=== PATIENT | male | born 1975 | race Caucasian/White ===

== ENCOUNTER 2016-12-05 06:31 | Emergency (ER) | payer OTHER ==
[~2016-12-05] VITALS: Ht 170.2 cm; Wt 79.5 kg
[~2016-12-05 06:31] MED LIST: (None)3.5 GM OP; ACETTAB3 OR; ADDERALL20 MG OR; ADOXA PAK PO; ASPIRIN EC81 MG PO; ATIVAN0.5 MG PO; AUGMENTIN875TAB PO; BACTRIM DS1 TAB PO; CLINDAMYCIN300 M1 PO; CLONIDINE HCL0.2 MG PO; COLACE100 MG PO; DOXYCYCL HYC100 MG PO; EQ MAGNESIUM CI1 SOL PO; FLEXERIL OR; FLEXERIL PO; FLEXERIL5 M1 PO; GENTAMICIN SULF5 ML OP; GENTAMICIN0.3 % OD; GENTASOL0.3 % OS; HYDROCO/APAP1 T13 PO; HYDROXYZ HCL25 MG PO; KEFLEX500 MG OR; KRISTALOSE10 GM PO; LEVEMIR1000 UNITS SC; LIDOCAINE VISC20 ML EX; LOPRESSOR 550 MG/TAB PO; LORTAB 10 PO; LORTAB 10-325 M1 TAB PO; LORTAB 1010 MG PO; LORTAB 5/3255 MG PO; LORTAB 7.5 OR; LORTAB5 PO; METFORMIN500 M2 PO; MIRALAX3350 N1 PO; MIRALAX3350 NF PO; MOTRIN200 MG PO; MUPIROCIN2 % EX; NAPROSYN500 MG PO; NO HOME MEDS; NOVOLIN N1000 UNITS SC; NOVOLOG100 IU/1 M SC; OXYCODONE HCL15 MG PO; OXYCODONE30 MG PO; PENICILLN VK500 MG PO; PERCOCET 5/325M1 TAB PO; PERCOCET1 TA4 PO; RITALIN20 MG OR; ROBAXIN-750750 MG PO; SENNA/DSS1 TAB PO; TRADJENTA5 MG PO; TYLENOL # 31 TA1 PO; ULTRAM50 M1 PO; ULTRAM50 MG PO; VISTARIL50 MG OR; XANAX0.5 MG PO; ZESTRIL/PRIN5 MG/TA1 PO; ZESTRIL10 M1 PO; ZOCOR20 M1 PO; ZOFRAN4 MG/TAB PO; [UNRECOGNIZED DRUG - SUPPLY] TOP
[2016-12-05] MEDS ORDERED: RITALIN10 MG PO (06:58)
[2016-12-05 08:10] VITALS: BP 147/105
== END 2016-12-05 08:10 | disposition left against medical advice (07) | DRG 607 ==
LOC: ED 06:31
DX: R21 Rash and other nonspecific skin eruption (principal); E16.2 Hypoglycemia, unspecified; Z91.19 Patient's noncompliance with other medical treatment and regimen

== ENCOUNTER 2017-01-10 13:49 | Observation (INO) | payer OTHER ==
[~2017-01-10] VITALS: Ht 170.2 cm; Wt 80.0 kg
[~2017-01-10 13:49] MED LIST changes: +LEVEMIR FL100 UNIT/M SC; +RITALIN10 MG PO
[2017-01-10 14:33] LABS: HEMATOCRIT 44.3 % (39.0-50.0); HEMOGLOBIN 15.5 g/dl (14.0-18.0); IMMATURE GRANULOCYTES 0.4 % (0.0-1.0); MEAN CELL VOLUME 86.2 fL CALC (80.0-100.0); MEAN CORPUSCULAR HGB 30.2 pG CALC (26.0-32.0); NEUT# 8.95 thou/uL (1.82-7.42); RED BLOOD COUNT 5.14 mill/uL (4.70-6.10); RED CELL DISTRI WIDTH 12.2 % (11.5-15.5)
[2017-01-10] MEDS ORDERED: SUBOXONE1 MI1 SL (14:42)
[2017-01-10] MEDS ORDERED: ATIVAN1 MG PO (14:43)
[2017-01-10 14:51] LABS: ALBUMIN 4.5 g/dL (3.2-5.0); ALKALINE PHOSPHATASE 81 u/l (38-126); AMYLASE 36 u/l (30-110); ANION GAP 16 (6-22 (CALC)); BILIRUBIN, TOTAL 0.6 mg/dL (0.0-1.4); BUN 14 mg/dL (9-20); BUN/CREATININE RATIO 25 (12-20 (CALC)); CALCIUM 9.7 mg/dL (8.4-10.2); CARBON DIOXIDE 27 mmol/l (22-30); CHLORIDE 103 mmol/l (95-108); CREATININE 0.6 mg/dL (0.7-1.3); GFR > 60 ML/MIN (>=60 (CALC)); GFR FOR AFR.AMER. > 60 ML/MIN (>=60 (CALC)); GLUCOSE 174 mg/dL (75-110); LIPASE 17 u/l (23-300); POTASSIUM 4.3 mmol/l (3.5-5.1); SGOT/AST 36 u/l (17-59); SGPT/ALT 33 u/l (21-72); SODIUM 141 mmol/l (137-146); TOTAL PROTEIN 8.9 g/dL (6.3-8.2)
[2017-01-10 15:04] LABS: MYOGLOBIN 25 ng/mL (0 - 121)
[2017-01-10] MEDS ORDERED: XANAX2 MG PO (15:51)
[2017-01-10 16:00] VITALS: BP 125/85
[2017-01-10 19:00] VITALS: BP 121/83
[2017-01-10 23:19] VITALS: BP 124/81
[2017-01-11 03:48] VITALS: BP 121/88
[2017-01-12] MEDS ORDERED: ONDANSETRON HCL4 MG PO (20:35)
[2017-01-12] MEDS ORDERED: OXYCODONE HCL30 MG PO (20:36)
[2017-01-12] MEDS ORDERED: ALPRAZOLAM1 MG PO (20:38)
[2017-01-12] MEDS ORDERED: CLONIDINE HCL0.2 MG PO (20:38)
[2017-01-12] MEDS ORDERED: LORAZEPAM0.5 MG PO (20:39)
[2017-01-12] MEDS ORDERED: KEFLEX500 MG PO (23:10)
== END 2017-01-11 08:00 | disposition left against medical advice (07) | DRG 313 ==
LOC: ED 13:49 → ED-I 15:09 → ED 15:30 → MS2 15:31
PROVIDERS: Emergency Medicine; ADMIT Internal Medicine; ATTEND Internal Medicine
DX: R07.9 Chest pain, unspecified (principal); E11.40 Type 2 diabetes mellitus with diabetic neuropathy, unspecified; F11.20 Opioid dependence, uncomplicated; I10 Essential (primary) hypertension; G89.29 Other chronic pain; M54.9 Dorsalgia, unspecified; Z79.4 Long term (current) use of insulin
CPT/HCPCS: G0378

== ENCOUNTER 2017-01-12 20:16 | Emergency (ER) | payer OTHER ==
[~2017-01-12] VITALS: Ht 170.2 cm; Wt 81.0 kg
[~2017-01-12 20:16] MED LIST changes: +ATIVAN1 MG PO; +SUBOXONE1 MI1 SL; +XANAX2 MG PO
[2017-01-12] MEDS ORDERED: ONDANSETRON HCL4 MG PO (20:35)
[2017-01-12] MEDS ORDERED: OXYCODONE HCL30 MG PO (20:36)
[2017-01-12] MEDS ORDERED: CLONIDINE HCL0.2 MG PO (20:38)
[2017-01-12] MEDS ORDERED: ALPRAZOLAM1 MG PO (20:38)
[2017-01-12] MEDS ORDERED: LORAZEPAM0.5 MG PO (20:39)
[2017-01-12 23:00] VITALS: BP 158/72
[2017-01-12] MEDS ORDERED: KEFLEX500 MG PO (23:10)
== END 2017-01-12 23:00 | disposition home or self-care (01) | DRG 607 ==
LOC: ED 20:16
DX: L73.9 Follicular disorder, unspecified (principal); E11.40 Type 2 diabetes mellitus with diabetic neuropathy, unspecified; F11.20 Opioid dependence, uncomplicated; I10 Essential (primary) hypertension; G89.29 Other chronic pain; M54.9 Dorsalgia, unspecified; Z79.4 Long term (current) use of insulin

== ENCOUNTER 2017-02-27 12:48 | Emergency (ER) | payer OTHER ==
[~2017-02-27] VITALS: Ht 170.2 cm; Wt 85.0 kg
[~2017-02-27 12:48] MED LIST changes: +ALPRAZOLAM1 MG PO; +KEFLEX500 MG PO; +LEVEMIR100 UNIT/M SC; +LORAZEPAM0.5 MG PO; -NOVOLOG100 IU/1 M SC; +ONDANSETRON HCL4 MG PO; +OXYCODONE HCL30 MG PO
[2017-02-27] MEDS ORDERED: NOVOLOG100 UNIT/M SC (13:05)
[2017-02-27] MEDS ORDERED: ATIVAN1 MG PO (15:23)
[2017-02-27 15:33] VITALS: BP 135/90
== END 2017-02-27 15:45 | disposition home or self-care (01) | DRG 897 ==
LOC: ED 12:48
DX: F11.23 Opioid dependence with withdrawal (principal); E11.40 Type 2 diabetes mellitus with diabetic neuropathy, unspecified; I10 Essential (primary) hypertension; G89.29 Other chronic pain; M54.9 Dorsalgia, unspecified; Z79.4 Long term (current) use of insulin
CPT/HCPCS: J2060

== ENCOUNTER 2017-07-04 06:08 | Emergency (ER) | payer OTHER ==
[~2017-07-04] VITALS: Ht 170.2 cm; Wt 81.8 kg
[~2017-07-04 06:08] MED LIST changes: +NOVOLOG100 UNIT/M SC
[2017-07-04] MEDS ORDERED: SUBOXONE1 MI1 SL (06:34)
[2017-07-04 07:02] LABS: HEMATOCRIT 39.7 % (39.0-50.0); HEMOGLOBIN 13.7 g/dl (14.0-18.0); IMMATURE GRANULOCYTES 0.3 % (0.0-1.0); MEAN CELL VOLUME 89.2 fL CALC (80.0-100.0); MEAN CORPUSCULAR HGB 30.8 pG CALC (26.0-32.0); MEAN CORPUSCULAR HGB CONC 34.5 g/L CALC (32.0-36.0); NEUT# 7.7 thou/uL (1.82-7.42); RED BLOOD COUNT 4.45 mill/uL (4.70-6.10); RED CELL DISTRI WIDTH 12.2 % (11.5-15.5)
[2017-07-04 07:13] LABS: URINE BILIRUBIN - DIPSTICK NEGATIVE (NEGATIVE); URINE BLOOD DIPSTICK NEGATIVE (NEGATIVE); URINE CLARITY CLEAR; URINE COLOR YELLOW; URINE GLUCOSE - DIPSTICK NEGATIVE (NEGATIVE); URINE KETONE NEGATIVE (NEGATIVE); URINE LEUK ESTERASE NEGATIVE (NEGATIVE); URINE NITRITE - DIPSTICK NEGATIVE (Negative); URINE PROTEIN - DIPSTICK NEGATIVE (NEG-TRACE); URINE UROBILINOGEN - DIPSTICK 0.2 E.U./dL (0.2)
[2017-07-04 07:18] LABS: COCAINE NEGATIVE (NEGATIVE); METHADONE NEGATIVE (NEGATIVE); TETRAHYDROCANNABIONOL POSITIVE (NEGATIVE)
[2017-07-04 07:19] LABS: BARBITURATES NEGATIVE (NEGATIVE); OXCYCODONE NEGATIVE (NEGATIVE); TRICYLIC ANTIDEPRESSANTS NEGATIVE (NEGATIVE)
[2017-07-04 07:24] LABS: ALBUMIN 4.2 g/dL (3.2-5.0); ALKALINE PHOSPHATASE 55 u/l (38-126); ANION GAP 14 (6-22 (CALC)); BILIRUBIN, TOTAL 0.6 mg/dL (0.0-1.4); BUN 16 mg/dL (9-20); BUN/CREATININE RATIO 23 (12-20 (CALC)); CALCIUM 9.5 mg/dL (8.4-10.2); CARBON DIOXIDE 30 mmol/l (22-30); CHLORIDE 104 mmol/l (95-108); CREATININE 0.7 mg/dL (0.7-1.3); GFR > 60 ML/MIN (>=60 (CALC)); GFR FOR AFR.AMER. > 60 ML/MIN (>=60 (CALC)); GLUCOSE 188 mg/dL (75-110); POTASSIUM 4.8 mmol/l (3.5-5.1); SGOT/AST 25 u/l (17-59); SGPT/ALT 40 u/l (21-72); SODIUM 143 mmol/l (137-146); TOTAL PROTEIN 7.1 g/dL (6.3-8.2)
[2017-07-04 07:36] LABS: MYOGLOBIN 27 ng/mL (0 - 121)
[2017-07-04 11:41] VITALS: BP 119/70
== END 2017-07-04 11:45 | disposition home or self-care (01) | DRG 313 ==
LOC: ED 06:08
PROVIDERS: Emergency Medicine
DX: R07.89 Other chest pain (principal)

== ENCOUNTER 2017-08-07 12:49 | Emergency (ER) | payer OTHER ==
[~2017-08-07] VITALS: Ht 170.2 cm; Wt 63.6 kg
[2017-08-07] MEDS ORDERED: CLONIDINE HCL0.1 MG PO (13:19)
[2017-08-07] MEDS ORDERED: ATIVAN2 MG PO (13:21)
[2017-08-07 13:49] LABS: HEMATOCRIT 41.3 % (39.0-50.0); HEMOGLOBIN 14.5 g/dl (14.0-18.0); IMMATURE GRANULOCYTES 0.3 % (0.0-1.0); MEAN CELL VOLUME 87.3 fL CALC (80.0-100.0); MEAN CORPUSCULAR HGB 30.7 pG CALC (26.0-32.0); MEAN CORPUSCULAR HGB CONC 35.1 g/L CALC (32.0-36.0); NEUT# 6.8 thou/uL (1.82-7.42); RED BLOOD COUNT 4.73 mill/uL (4.70-6.10); RED CELL DISTRI WIDTH 12.3 % (11.5-15.5)
[2017-08-07 14:12] LABS: ALBUMIN 4.7 g/dL (3.2-5.0); ALKALINE PHOSPHATASE 65 u/l (38-126); ANION GAP 17 (6-22 (CALC)); BILIRUBIN, TOTAL 0.5 mg/dL (0.0-1.4); BUN 13 mg/dL (9-20); BUN/CREATININE RATIO 22 (12-20 (CALC)); CALCIUM 9.6 mg/dL (8.4-10.2); CARBON DIOXIDE 23 mmol/l (22-30); CHLORIDE 107 mmol/l (95-108); CREATININE 0.6 mg/dL (0.7-1.3); GFR > 60 ML/MIN (>=60 (CALC)); GFR FOR AFR.AMER. > 60 ML/MIN (>=60 (CALC)); GLUCOSE 150 mg/dL (75-110); POTASSIUM 4.5 mmol/l (3.5-5.1); SGOT/AST 35 u/l (17-59); SGPT/ALT 54 u/l (21-72); SODIUM 142 mmol/l (137-146); TOTAL PROTEIN 7.9 g/dL (6.3-8.2)
[2017-08-07 14:33] LABS: MYOGLOBIN 25 ng/mL (0 - 121)
[2017-08-07] MEDS ORDERED: ATIVAN1 MG PO (14:37)
[2017-08-07 15:53] VITALS: BP 109/69
== END 2017-08-07 15:56 | disposition home or self-care (01) | DRG 897 ==
LOC: ED 12:49
PROVIDERS: Emergency Medicine
DX: F13.239 Sedative, hypnotic or anxiolytic dependence with withdrawal, unspecified (principal); F11.20 Opioid dependence, uncomplicated; R07.89 Other chest pain; F41.9 Anxiety disorder, unspecified

== ENCOUNTER 2017-08-11 16:25 | Emergency (ER) | payer OTHER ==
[~2017-08-11] VITALS: Ht 170.2 cm; Wt 79.0 kg
[~2017-08-11 16:25] MED LIST changes: +ATIVAN2 MG PO; +CLONIDINE HCL0.1 MG PO
[2017-08-11 16:38] VITALS: BP 127/97
[2017-08-11 16:55] LABS: HEMATOCRIT 41.9 % (39.0-50.0); HEMOGLOBIN 14.7 g/dl (14.0-18.0); IMMATURE GRANULOCYTES 0.2 % (0.0-1.0); MEAN CELL VOLUME 86.9 fL CALC (80.0-100.0); MEAN CORPUSCULAR HGB 30.5 pG CALC (26.0-32.0); MEAN CORPUSCULAR HGB CONC 35.1 g/L CALC (32.0-36.0); NEUT# 5.17 thou/uL (1.82-7.42); RED BLOOD COUNT 4.82 mill/uL (4.70-6.10); RED CELL DISTRI WIDTH 12.2 % (11.5-15.5)
[2017-08-11 17:41] LABS: ALBUMIN 4.6 g/dL (3.2-5.0); ALKALINE PHOSPHATASE 66 u/l (38-126); ANION GAP 17 (6-22 (CALC)); BILIRUBIN, TOTAL 0.6 mg/dL (0.0-1.4); BUN 12 mg/dL (9-20); BUN/CREATININE RATIO 18 (12-20 (CALC)); CALCIUM 9.6 mg/dL (8.4-10.2); CARBON DIOXIDE 27 mmol/l (22-30); CHLORIDE 102 mmol/l (95-108); CREATININE 0.7 mg/dL (0.7-1.3); GFR > 60 ML/MIN (>=60 (CALC)); GFR FOR AFR.AMER. > 60 ML/MIN (>=60 (CALC)); GLUCOSE 193 mg/dL (75-110); MAGNESIUM 1.8 mg/dL (1.6-2.3); POTASSIUM 4.3 mmol/l (3.5-5.1); SGOT/AST 33 u/l (17-59); SGPT/ALT 51 u/l (21-72); SODIUM 142 mmol/l (137-146); TOTAL PROTEIN 7.7 g/dL (6.3-8.2)
[2017-08-11 17:43] LABS: ETHYL ALCOHOL 0 mg/dl (0-30)
[2017-08-11 17:50] LABS: MYOGLOBIN 60 ng/mL (0 - 121)
== END 2017-08-11 17:07 | disposition left against medical advice (07) | DRG 894 ==
LOC: ED 16:25
PROVIDERS: Emergency Medicine
DX: F19.239 Other psychoactive substance dependence with withdrawal, unspecified (principal); R00.2 Palpitations; E11.40 Type 2 diabetes mellitus with diabetic neuropathy, unspecified; F11.20 Opioid dependence, uncomplicated; I10 Essential (primary) hypertension; G89.29 Other chronic pain; M54.9 Dorsalgia, unspecified

== ENCOUNTER 2017-10-31 12:16 | Emergency (ER) | payer OTHER ==
[~2017-10-31] VITALS: Ht 170.2 cm; Wt 65.0 kg
[2017-10-31 13:00] VITALS: BP 122/82
[2017-10-31] MEDS ORDERED: METHYLPHENID20 M2 PO (13:05)
[2017-10-31] MEDS ORDERED: CLONAZEPAM0.5 MG PO (13:06)
== END 2017-10-31 13:00 | disposition home or self-care (01) | DRG 880 ==
LOC: ED 12:16
DX: F41.9 Anxiety disorder, unspecified (principal); E11.40 Type 2 diabetes mellitus with diabetic neuropathy, unspecified; I10 Essential (primary) hypertension; F11.21 Opioid dependence, in remission; F13.21 Sedative, hypnotic or anxiolytic dependence, in remission